=== PATIENT | female | born 1980 | race Caucasian/White ===

== ENCOUNTER 2018-01-16 15:57 | Inpatient (IN) | payer MEDICAID ==
--- NOTE | 2018-01-16 18:28 | History and Physical Report ---
History of Present Illness Date of examination: 01/16/18 Date of admission: 01/16/18 15:57 Chief complaint: Sent from [facility] for elevated BP's History of present illness: Pt is a 37yo BF EDC 02/12/18; EGA 36 1/7 weeks presents from [facility] for BP monitoring and PIH workup after complaining of headaches with visual disturbances and edema. Her BP's were 147/80 and 139/83 and BPP was 10/10 but fetus was in transverse position. She is also edel q 3-4 mins. She received care at [facility] since 7 weeks and co-managed by [facility] due to AMA and PIH. Her previous [facility] labs showed 24hr urine 196, Uric acid 4.5 , LDH 111, ALT 14, AST 17 and Platelets 218. Her labs will be repeated now and BP's monitored. records are available and GBS Negative. Past History Past Medical History: no pertinent history Past Surgical History: no surgical history PATTERNATOR History: herpes Family/Genetic History: diabetes, heart disease, hypertension, cancer Social history: no significant social history, single - Obstetrical History Expected Date of Delivery: 02/12/18 Actual Gestation: 36 Week(s) 1 Day(s) : 6 Medications and Allergies Allergies Allergy/AdvReac Type Severity Reaction Status Date / Time No Known Allergies Allergy Unverified 08/17/16 14:46 Home Medications Medication Instructions Recorded Confirmed Last Taken Type Ibuprofen [Motrin] 800 mg PO Q8HR PRN #21 tablet 08/17/16 Unknown Rx Review of Systems All systems: negative - Vital Signs Vital signs: Vital Signs Pulse Resp BP Pulse Ox 87 18 128/79 98 01/16/18 16:51 01/16/18 16:51 01/16/18 16:51 01/16/18 16:51 Temp Pulse Resp BP Pulse Ox 87 18 128/79 98 01/16/18 16:51 01/16/18 16:51 01/16/18 16:51 01/16/18 16:51 - Physical Exam Cardiovascular: Regular rate Lungs: Positive: Clear to auscultation Abdomen: Positive: normal appearance, soft Genitourinary (Female): Positive: normal external genitalia Uterus: Positive: enlarged Extremities: Positive: edema - Obstetrical FHR: category 1 Uterine Contraction Monitor Mode: External Cervical Dilatation: 1.5 Cervical Effacement Percentage: 50 station: -2 Uterine Contraction Pattern: Regular Uterine Tone Measurement Phase: Contraction Uterine Contraction Intensity: Moderate Results Result Diagrams: 01/16/18 18:55 All other labs normal. Ultrasound: report reviewed (transverse presentation) Assessment and Plan - Patient Problems (1) 36 weeks gestation of Onset Date: 01/16/18 Current Visit: Yes Status: Acute Plan to address problem: A: IUP @ 36 1/7 weeks in early labor Gestational hypertension - suspect superimposed preeclampsia Transverse presentation P: Admit to L&D for BP monitoring and PIH labs Since pt is edel q 3-4 mins, will deliver by C Section.
[2018-01-16] MEDS ORDERED: LACTATED RINGERS 1,000 ML ONE (19:10)
[2018-01-16] MEDS ORDERED: REGLAN IV NR (19:21)
[2018-01-16] MEDS ORDERED: PEPCID IV NR (19:21)
[2018-01-16] MEDS ORDERED: BICITRA PO ONE (19:21)
[2018-01-16 19:24] LABS: Hematocrit 41.1 % (30.3-42.9); Hemoglobin 13.9 gm/dl (10.1-14.3); Mean Corpuscular HGB Conc 34 % (30-34); Mean Corpuscular Hemoglobin 30 pg (28-32); Mean Corpuscular Volume 88 fl (79-97); Platelet Count 242 K/mm3 (140-440); Red Blood Count 4.68 M/mm3 (3.65-5.03); Red Cell Distribution Width 14.8 % (13.2-15.2)
[2018-01-16 19:39] LABS: Alanine Aminotransferase 23 units/L (7-56); Uric Acid 4.6 mg/dL (3.5-7.6)
[2018-01-16] MEDS: LACTATED RINGERS 1,000 ML IV SCH ×2 (19:48→19:59)
[2018-01-16 19:57] LABS: Amorphous Crystals,Urine Few; Bilirubin,Urine NEG (Negative); Blood,Urine NEG (Negative); Color,Urine Yellow (Yellow); Mucus,Urine FEW /HPF; Protein,Urine <15 mg/dL mg/dL (Negative); Urobilinogen,Urine < 2.0 mg/dL (<2.0)
[2018-01-16] MEDS ORDERED: PITOCin/NS 20 UNIT/1000ML DRIP 20 UNITS/1,000 ML BAG IV SCH ×2 (20:00→22:00)
[2018-01-16] MEDS ORDERED: LACTATED RINGERS 1,000 ML IV ONE (20:00)
[2018-01-16] MEDS ORDERED: ANCEF/STERILE WATER 2 GM/20 ML 2 GM/20 ML SYRINGE IV NR (20:00)
[2018-01-16] MEDS ORDERED: SUBLIMAZE ONE ×3 (20:15→21:12)
[2018-01-16] MEDS ORDERED: NACL 0.9% IR ONE (20:30)
[2018-01-16] MEDS ORDERED: WATER FOR IRRIG STERILE IR ONE (20:30)
[2018-01-16] MEDS ORDERED: VERSED ONE ×3 (21:08→21:24)
[2018-01-16] MEDS ORDERED: TORADOL ONE (21:25)
--- NOTE | 2018-01-16 21:45 | Operative Report ---
Operative Report Operative Report: Date of procedure: 01/16/2018 Pre-operative diagnosis: 1. Intrauterine at 36-1/7 weeks in labor 2. Gestational hypertension 3. Transverse presentation Post-operative diagnosis: Same Procedure name(s): Primary low transverse section Surgeon: Moe Witt MD Certified Nursing Assistant Instructor: None Anesthesia: Spinal anesthesia by Dr. Leslie EBL: 300 mL's Findings: A 2362 g male infant Apgars 5 at 1 minute 9 at 5 minutes. Infant in transverse backdown position rotated to double footling breech for delivery. Clear amniotic fluid. Normal uterus. Normal tubes and ovaries bilaterally. Procedure: After the patient was prepped and draped in usual sterile fashion, and after satisfactory level of epidural anesthesia was obtained, the skin knife was used to make a transverse skin incision. The incision was excised down to layer of the fascia, which was nicked in the midline and extended laterally using the Bovie cautery. The rectus muscles were dissected off the rectus fascia both superiorly and inferiorly. The rectus bellies in the midline, and the peritoneum was entered under direct visualization. The peritoneal incision was extended superiorly and inferiorly. A bladder flap was created and the bladder blade was then placed. The uterus was scored in a curvilinear linear fashion, entered in the midline revealing clear amniotic fluid. The 's presentation in a transverse backdown position was rotated to a double footling breech for delivery. The rest of the 's body was delivered, cord was doubly clamped and cut and the infant was handed to the waiting respiratory team. The placenta was manually removed from the uterus, and the uterus removed from its normal anatomical position. After gentle uterine lavage, the incision was inspected and found to be without extensions. It was then closed in 2 layers using 0 Vicryl suture in a running interlocking fashion, the second layer imbricating the first. After good hemostasis was achieved, copious amounts or irrigation was performed, and the gutters were suctioned free of blood and blood clots. Tisseel sealant was sprayed across the uterine incision. The uterus was then returned to its normal anatomical position, and after excellent hemostasis assured, the peritoneum was re- approximated using 3-0 Vicryl suture in a running interlocking fashion, and then the rectus muscles were re-approximated using 3-0 Vicryl suture in a figure -of-eight configuration. The fascia was then re-approximated using 0 Vicryl suture in running interlocking fashion. The subcutaneous layer was made hemostatic using Bovie cautery, the Tisseel sealant was sprayed across the fascial incision and the skin edges re-approximated using 4-0 Vicryl suture in a sub-cuticular fashion. Patient tolerated the procedure well was transported to recovery in stable condition.
[2018-01-16] MEDS ORDERED: TUCKS PAD TP PRN (21:47)
[2018-01-16] MEDS ORDERED: LANSINOH TP PRN (21:47)
[2018-01-16] MEDS ORDERED: TYLENOL PO PRN (21:47)
[2018-01-16] MEDS ORDERED: MILK OF MAGNESIA PO PRN (21:47)
[2018-01-16] MEDS ORDERED: NARCAN 0.4 MG/1 ML IV PRN (21:47)
[2018-01-16] MEDS ORDERED: MYLICON PO PRN (21:47)
[2018-01-16] MEDS ORDERED: PHENERGAN PR PRN (21:47)
[2018-01-16] MEDS ORDERED: ZOFRAN IV PRN (21:47)
[2018-01-16] MEDS ORDERED: NEO SYNEPHRINE/NS Syringe(OR USE) IV ONE (21:53)
[2018-01-16] MEDS ORDERED: ANCEF/NS 1 GM/50 ML 1 GM/50 ML BAG IV SCH (22:00)
[2018-01-16] MEDS ORDERED: SODIUM CHLORIDE FLUSH SYRINGE 10 ML IV NR (22:00)
[2018-01-16] MEDS: D5LR 1,000 ML IV SCH (22:17)
[2018-01-17] MEDS ORDERED: TORADOL IV PRN (00:25)
[2018-01-17] MEDS: PERCOCET 5/325 PO PRN ×4 (01:03→20:36)
[2018-01-17] MEDS: NORCO 5/325 PO PRN ×2 (01:03→17:40)
[2018-01-17] MEDS: TORADOL IV PRN ×2 (02:47→10:51)
[2018-01-17] MEDS: D5LR 1,000 ML IV SCH (03:55)
[2018-01-17] MEDS: ceFAZolin 1 GM in NACL 0.9% 20 ML IV SCH ×2 (04:03→12:30)
[2018-01-17] MEDS ORDERED: M-M-R II VACCINE SUB-Q ONE (06:00)
[2018-01-17] MEDS ORDERED: BOOSTRIX IM ONE (06:00)
[2018-01-17 11:42] LABS: Hematocrit 34.8 % (30.3-42.9); Hemoglobin 11.5 gm/dl (10.1-14.3)
[2018-01-17] MEDS: MOTRIN PO PRN (17:40)
[2018-01-18] MEDS: PERCOCET 5/325 PO PRN ×4 (01:03→19:31)
[2018-01-18] MEDS: NORCO 5/325 PO PRN (05:20)
[2018-01-18] MEDS: MOTRIN PO PRN ×2 (05:20→15:23)
[2018-01-18] MEDS ORDERED: BOOSTRIX IM ONE (06:00)
[2018-01-18] MEDS: FEOSOL PO SCH (10:30)
[2018-01-18] MEDS: PRENATAL VITAMIN PO SCH (10:30)
[2018-01-18] MEDS ORDERED: MILK OF MAGNESIA PO PRN (12:00)
--- NOTE | 2018-01-18 13:22 | Progress Note ---
Assessment and Plan O: Abd slightly distended A: POD #2 P: Encouraged ambulation Subjective - Subjective Date of service: 01/18/18 Principal diagnosis: POD #2 Patient reports: appetite normal, dizzy ambulation [place]: doing well (SGA) Objective - Vital Signs Latest vital signs: Vital Signs Temp Pulse Resp BP BP Pulse Ox 01/18/18 09:02 97.6 F 93 H 18 111/70 98 01/18/18 00:00 98.7 F 71 16 101/68 01/17/18 17:40 20 01/17/18 15:50 98.1 F 92 H 16 120/71 98 Intake and Output 01/17/18 01/18/18 01/18/18 22:59 06:59 14:59 Intake Total 120 200 Output Total 400 Balance -280 200 Intake: Oral 120 200 Output: Urine 400 Void 400 Other: Total, Intake Amount 120 200 Total, Output Amount 400 # Voids Void 200 - Exam Breasts: Present: deferred, Cardiovascular: Present: Regular rate Lungs: Present: Clear to auscultation Abdomen: Present: soft, distention, tenderness Vulva: both: normal Uterus: Present: fundal height below umbilicus Extremities: Present: normal Deep Tendon Reflex Grade: Normal +2 Incision: Present: intact
[2018-01-19] MEDS: NORCO 5/325 PO PRN (00:07)
[2018-01-19] MEDS: MOTRIN PO PRN ×2 (00:07→11:12)
[2018-01-19] MEDS: PERCOCET 5/325 PO PRN ×3 (05:34→20:45)
[2018-01-19] MEDS ORDERED: DULCOLAX PR PRN (06:00)
[2018-01-19] MEDS: FEOSOL PO SCH (11:11)
[2018-01-19] MEDS: PRENATAL VITAMIN PO SCH (11:12)
--- NOTE | 2018-01-19 12:24 | Progress Note ---
Assessment and Plan O: Still has some abdominal distention, passed gas earlier today, no nausea A: POD#3 P: Plan discharge home in am. Subjective - Subjective Date of service: 01/19/18 Principal diagnosis: POD #3 Patient reports: appetite normal [place]: doing well Objective - Vital Signs Latest vital signs: Vital Signs Temp Pulse Resp BP BP Pulse Ox 01/19/18 08:10 97.5 F L 77 18 133/71 98 01/19/18 00:00 98.6 F 66 18 129/73 01/18/18 16:26 98.2 F 90 18 131/81 99 Intake and Output 01/18/18 01/19/18 01/19/18 22:59 06:59 14:59 Intake Total 300 Balance 300 Intake: Intake, Free Water 300 Other: # Voids Void 1 - Exam Breasts: Present: deferred Cardiovascular: Present: Regular rate Lungs: Present: Clear to auscultation Abdomen: Present: distention Vulva: both: normal Uterus: Present: fundal height below umbilicus Extremities: Present: normal Incision: Present: normal
--- NOTE | 2018-01-19 12:25 | Discharge Summary ---
Providers - Providers Date of Admission: 01/16/18 15:57 Date of discharge: 01/20/18 Attending physician: YUAN PERALTA MD Primary care physician: YUAN PERALTA MD Hospitalization Reason for admission: other (PIH, Transverse lie) Delivery: Procedure: section Episiotomy: none Laceration: none Other procedures: none complications: none Discharge diagnosis: IUP at term delivered [place] baby: male Condition at discharge: Good Disposition: DC-01 TO HOME OR SELFCARE Plan - Discharge Medications Prescriptions: Ferrous Sulfate [Feosol 325 MG tab] 325 mg PO BID #60 tablet HYDROcodone/APAP 5-325 [[place] 5/325] 1 each PO Q6HR PRN #30 tablet PRN Reason: Pain Ibuprofen [Motrin] 800 mg PO Q8HR PRN #30 tablet PRN Reason: Moder Pain Unrelieved By [place] Vit Calc,Iron,Folic [ Vitamins] 1 each PO DAILY #30 tablet - Provider Discharge Summary Activity: routine, no sex for 6 weeks, no strenuous exercise Diet: routine Instructions: routine Additional instructions: [] Smoking cessation referral if applicable(refer to patient education folder for contact #) [] Refer to [facility] Booklet Call your doctor immediately for: * Fever > 100.5 * Heavy vaginal bleeding ( >1 pad per hour) * Severe persistent headache * Shortness of breath * Reddened, hot, painful area to leg or breast * Drainage or odor from incision. * Keep incision clean and dry at all times and follow doctor's instructions regarding bathing/showering - Follow up plan Follow up: YUAN PERALTA MD [Primary Care Provider] - 14 Days
[2018-01-20] MEDS: PERCOCET 5/325 PO PRN ×2 (02:10→11:04)
[2018-01-20] MEDS: MOTRIN PO PRN ×3 (02:11→11:09)
[2018-01-20 10:36] VITALS: BP 132/76
[2018-01-20] MEDS: PRENATAL VITAMIN PO SCH (11:04)
== END 2018-01-20 14:45 | disposition home or self-care (01) | DRG 765 ==
LOC: LD 15:57 → OB 23:38
PROVIDERS: ADMIT Obstetrics & Gynecology; ATTEND Obstetrics & Gynecology
PROC: 10D00Z1 Extraction of Products of Conception, Low, Open Approach (ICD-10-PCS; principal; 2018-01-16)
PROC: 3E0234Z Introduction of Serum, Toxoid and Vaccine into Muscle, Percutaneous Approach (ICD-10-PCS; 2018-01-17)
DX: O32.2XX0 Maternal care for transverse and oblique lie, not applicable or unspecified (principal); O13.4 Gestational [pregnancy-induced] hypertension without significant proteinuria, complicating childbirth; Z3A.36 36 weeks gestation of pregnancy; Z37.0 Single live birth; Z82.49 Family history of ischemic heart disease and other diseases of the circulatory system; Z83.3 Family history of diabetes mellitus; Z80.9 Family history of malignant neoplasm, unspecified; Z23 Encounter for immunization
CPT/HCPCS: 36415; 81001; 82565; 83615; 84450; 84460; 84550; 85014; 85018; 85027; 90471; 90715; 99211; C9250; G0463; J0690; J1885; J2250; J2370; J2405; J2590; J2765; J3010; J7120; J7121

== ENCOUNTER 2018-02-09 19:50 | Emergency (ER) | payer MEDICAID ==
[2018-02-09 20:02] VITALS: BP 119/91
--- NOTE | 2018-02-09 21:41 | Emergency Department Report ---
- General Chief Complaint: Wound/Laceration Stated Complaint: OPEN Time Seen by Provider: 02/09/18 20:57 Source: patient Mode of arrival: Ambulatory Limitations: No Limitations - History of Present Illness Initial Comments: This is a 37-year-old female presents with the wound from on January 16. Patient reports wound is healing but she has noticed small opening on the right side of surgical wound. She did notice drainage from site that does not have an odor. She is applying anything peroxide with water to wound for cleaning. Patient reports following up with [facility] 2 weeks ago showing them the wound and they stated wound will close when sutures dissolve. She has noticed there is one small suture above opening of the wound. She is concerned is possibly infected. There is some tenderness to wound site. She was taken [place] and ibuprofen for pain which has not resolved pain. She has a 6 week follow-up appointment with [facility] at [facility] in 2 weeks. Denies swelling, redness, and fever. -: week(s) (3 weeks) Location: abdomen ( wound to lower abdomen) Place: home Patient Tetanus UTD: Yes Context: other (status post ) Associated Symptoms: pain, other (drainage from healing wound) Treatments Prior to Arrival: NSAIDS - Related Data Previous Rx's Medication Instructions Recorded Last Taken Type Ibuprofen [Motrin] 800 mg PO Q8HR PRN #21 tablet 08/17/16 Unknown Rx Ferrous Sulfate [Feosol 325 MG tab] 325 mg PO BID #60 tablet 01/16/18 Unknown Rx HYDROcodone/APAP 5-325 [[place] 1 each PO Q6HR PRN #30 tablet 01/16/18 Unknown Rx 5/325] Ibuprofen [Motrin] 800 mg PO Q8HR PRN #30 tablet 01/16/18 Unknown Rx Vit Calc,Iron,Folic 1 each PO DAILY #30 tablet 01/16/18 Unknown Rx [ Vitamins] Acetaminophen/Codeine [Tylenol 1 tab PO Q6H PRN #15 tab 02/09/18 Unknown Rx /Codeine # 3 tab] Allergies Allergy/AdvReac Type Severity Reaction Status Date / Time No Known Allergies Allergy Verified 02/09/18 20:02 ED Review of Systems ROS: Stated complaint: OPEN Other details as noted in HPI Constitutional: denies: chills, fever Respiratory: denies: cough, shortness of breath, wheezing Cardiovascular: denies: chest pain, palpitations Gastrointestinal: abdominal pain (lower abdominal s/p ). denies: nausea, diarrhea Skin: lesions (healing wound small opening on the right side of wound) Neurological: denies: headache, weakness, paresthesias Psychiatric: denies: anxiety, depression ED Past Medical Hx - Past Medical History Previous Medical History?: Yes Hx Hypertension: Yes (2005) Hx Congestive Heart Failure: No Hx Diabetes: No Hx Deep Vein Thrombosis: No Hx Renal Disease: No Hx Sickle Cell Disease: No Hx Seizures: No Hx Asthma: Yes (WHEN YOUNGER, BRONCHITIS NOW DRUING ) Hx COPD: No Hx HIV: No - Surgical History Past Surgical History?: No Additional Surgical History: csection. eye. bladder reconstrucion - Social History Smoking Status: Never Smoker Substance Use Type: None - Medications Home Medications: Home Medications Medication Instructions Recorded Confirmed Last Taken Type Ibuprofen [Motrin] 800 mg PO Q8HR PRN #21 tablet 08/17/16 01/17/18 Unknown Rx Ferrous Sulfate [Feosol 325 MG tab] 325 mg PO BID #60 tablet 01/16/18 Unknown Rx HYDROcodone/APAP 5-325 [[place] 1 each PO Q6HR PRN #30 tablet 01/16/18 Unknown Rx 5/325] Ibuprofen [Motrin] 800 mg PO Q8HR PRN #30 tablet 01/16/18 Unknown Rx Vit Calc,Iron,Folic 1 each PO DAILY #30 tablet 01/16/18 Unknown Rx [ Vitamins] Acetaminophen/Codeine [Tylenol 1 tab PO Q6H PRN #15 tab 02/09/18 Unknown Rx /Codeine # 3 tab] ED Physical Exam - General Limitations: No Limitations General appearance: alert, in no apparent distress, obese - Respiratory Respiratory exam: Present: normal lung sounds bilaterally. Absent: respiratory distress, wheezes, rales, rhonchi, stridor, accessory muscle use - Cardiovascular Cardiovascular Exam: Present: regular rate, normal rhythm, normal heart sounds. Absent: systolic murmur, diastolic murmur, rubs, gallop - GI/Abdominal GI/Abdominal exam: Present: soft, tenderness, normal bowel sounds. Absent: distended, guarding (RLQ & LLQ on palpation), rebound, rigid, organomegaly, mass - Neurological Exam Neurological exam: Present: alert, oriented X3, normal gait - Psychiatric Psychiatric exam: Present: normal affect, normal mood - Skin Skin exam: Present: warm, dry, normal color, other (healing low transverse abdominal incision, 3 mm wound on the right side of the incision, no discharge, erythema, or swelling). Absent: intact, rash ED Course Vital Signs 02/09/18 19:56 Temperature 98 F Pulse Rate 83 Respiratory 18 Rate Blood Pressure 119/91 O2 Sat by Pulse 99 Oximetry ED Medical Decision Making - Medical Decision Making This is a 37 y.o. female that presents with drainage from surgical wound from . Patient examined by me. No distress noted. Vitals stable. She was seen by [facility] 2 weeks ago and informed of normal healing of wound. Patient is afebrile. Physical assessment findings of healing lower transverse surgical wound to abdomen. There is a 3 mm opening on the right side, no discharge noted, no cellulitis. She is having moderate discomfort with deep palpation. Will start Tylenol No. 3 today for pain. Advised to follow-up with [facility]. She does have an [facility] 6 week follow-up appointment in 2 weeks at a [facility]. Referrals to wound care. Critical care attestation.: If time is entered above; I have spent that time in minutes in the direct care of this critically ill patient, excluding procedure time. ED Disposition Clinical Impression: Wound drainage, Wound of abdomen Abdominal pain Qualifiers: Abdominal location: lower abdomen, unspecified Qualified Code(s): R10.30 - Lower abdominal pain, unspecified Disposition: TO HOME OR SELFCARE Is pt being admited?: No Does the pt Need Aspirin: No Condition: Stable Instructions: Acute Wound Care (ED), Wound Healing and Your Diet (ED) Additional Instructions: Clean wound daily with soap and water. Return to the ER if redness, foul smelling discharge, fever, and severe pain. Follow-up with [facility] in 2-5 days. Prescriptions: Acetaminophen/Codeine [Tylenol /Codeine # 3 tab] 1 tab PO Q6H PRN #15 tab PRN Reason: Pain Referrals: [facility] [Provider Group] - 3-5 Days [facility] [Provider Group] - 3-5 Days [facility] [Outside] - 3-5 Days Time of Disposition: 21:50 Print Language: GE[place]
== END 2018-02-09 21:56 | disposition home or self-care (01) ==
LOC: ED 19:50
DX: T81.89XA Other complications of procedures, not elsewhere classified, initial encounter (principal); R10.30 Lower abdominal pain, unspecified; I10 Essential (primary) hypertension; J45.909 Unspecified asthma, uncomplicated; Y83.8 Other surgical procedures as the cause of abnormal reaction of the patient, or of later complication, without mention of misadventure at the time of the procedure; Y92.89 Other specified places as the place of occurrence of the external cause
CPT/HCPCS: 99282